=== PATIENT | male | born 1990 | race Caucasian/White ===

== ENCOUNTER 2018-04-21 21:23 | Emergency (ER) | payer BC ==
[~2018-04-21] VITALS: Ht 170.2 cm; Wt 54.4 kg
[2018-04-21] MEDS ORDERED: AMOXICILLIN 50500 MG (21:42)
[2018-04-21] MEDS ORDERED: ZPAK PO (22:22)
[2018-04-21] MEDS ORDERED: NABUMETONE 750750 M1 PO (22:22)
[2018-04-21] MEDS ORDERED: BUTALB-APAP-CA1 EACH PO (22:22)
[2018-04-21 22:34] VITALS: BP 112/67
== END 2018-04-21 22:36 | disposition home or self-care (01) ==
LOC: M.ERS 21:23
DX: J02.9 Acute pharyngitis, unspecified (principal); R59.1 Generalized enlarged lymph nodes; R51 Headache; R07.89 Other chest pain; Z88.8 Allergy status to other drugs, medicaments and biological substances

== ENCOUNTER 2018-04-24 20:19 | Emergency (ER) | payer BC ==
[~2018-04-24] VITALS: Ht 170.2 cm; Wt 54.4 kg
[~2018-04-24 20:19] MED LIST: AMOXICILLIN 50500 MG; BUTALB-APAP-CA1 EACH PO; NABUMETONE 750750 M1 PO; ZPAK PO
[2018-04-24 21:26] LABS: URINE BILIRUBIN NEGATIVE (Negative); URINE BLOOD NEGATIVE (Negative); URINE CLARITY CLEAR; URINE COLOR YELLOW; URINE GLUCOSE-RANDOM NEGATIVE (Negative); URINE KETONES 1+ (Negative); URINE LEUKOCYTES-REFLEX NEGATIVE (Negative); URINE NITRITE-REFLEX NEGATIVE (Negative); URINE PROTEIN TRACE (Negative); URINE UROBILINOGEN 0.2 E.U./dl (0.2-1.0)
[2018-04-24] MEDS ORDERED: MEDROLDOSEPACK PO (21:48)
[2018-04-24] MEDS ORDERED: CLEOCIN HCL300 MG PO (21:48)
[2018-04-24 22:00] VITALS: BP 102/57
== END 2018-04-24 22:01 | disposition home or self-care (01) ==
LOC: M.ERS 20:19
PROVIDERS: Nurse Practitioner Family
DX: J02.9 Acute pharyngitis, unspecified (principal); F17.200 Nicotine dependence, unspecified, uncomplicated; Z88.8 Allergy status to other drugs, medicaments and biological substances

== ENCOUNTER 2020-04-15 10:37 | Emergency (ER) | payer BC ==
[~2020-04-15] VITALS: Ht 170.2 cm; Wt 50.4 kg
[~2020-04-15 10:37] MED LIST changes: +CLEOCIN HCL300 MG PO; +MEDROLDOSEPACK PO
[2020-04-15 11:13] LABS: ABSOLUTE BASOPHILS 0.1 thou/uL (0.0-0.2); ABSOLUTE LYMPHOCYTES 1.7 thou/uL (0.8-5.3); ABSOLUTE MONOCYTES 0.7 thou/uL (0.0-1.2); ABSOLUTE NEUTROPHILS 6.8 thou/uL (1.6-8.1); BASOPHILS 1.4 %; EOSINOPHILS 0.2 %; HEMATOCRIT 43.2 % (42.0-52.0); HEMOGLOBIN 15.4 gm/dL (14.0-18.0); LYMPHOCYTES 18.1 %; MCH 31.7 pg (26.0-34.0); MCHC 35.6 g/dL (28.0-37.0); MCV 89.3 fL (80.0-100.0); MONOCYTES 7.9 %; MPV 7.2 fl. (7.2-11.1); NUCLEATED RBCS 0 /100WBC; PLATELET COUNT* 286 thou/uL (150-400); POLYS 72.4 %; RBC 4.85 mil/uL (4.50-6.00); RDW-CV 12.5 % (10.5-14.5); WBC 9.4 thou/uL (4.0-11.0)
[2020-04-15 11:20] LABS: APTT 28.1 Seconds (25.0-31.3); PROTIME 10.4 Seconds (9.20-11.50)
[2020-04-15 11:23] LABS: CALCIUM 8.9 mg/dL (8.5-10.1); CREATININE 0.9 mg/dL (0.6-1.3); POTASSIUM 3.9 mmol/L (3.5-5.1)
[2020-04-15 11:33] LABS: ALBUMIN 4.2 g/dL (3.4-5.0); TOTAL BILIRUBIN 0.5 mg/dL (<0.1-1.0); TOTAL PROTEIN 7.5 g/dL (6.4-8.2)
[2020-04-15 11:42] LABS: URINE BILIRUBIN NEGATIVE (Negative); URINE BLOOD NEGATIVE (Negative); URINE CLARITY CLEAR; URINE COLOR YELLOW; URINE GLUCOSE-RANDOM NEGATIVE (Negative); URINE KETONES NEGATIVE (Negative); URINE LEUKOCYTES-REFLEX NEGATIVE (Negative); URINE NITRITE-REFLEX NEGATIVE (Negative); URINE PROTEIN NEGATIVE (Negative); URINE SPECIFIC GRAVITY 1.025 (1.005-1.030); URINE UROBILINOGEN 0.2 E.U./dl (0.2-1.0)
[2020-04-15 12:07] LABS: AMP/METHAMP Negative (Negative); BARBITURATES Negative (Negative); BENZODIAZEPINES Negative (Negative); COCAINE Negative (Negative); METHADONE Negative (Negative); OPIATES Negative (Negative); PCP Negative (Negative); THC POSITIVE (Negative)
[2020-04-15 12:29] LABS: ACETAMINOPHEN < 2 ug/mL (10-30); ALCOHOL < 10 mg/dL (<10)
[2020-04-15 12:50] VITALS: BP 115/71
--- NOTE | 2020-04-15 15:43 | EKG ---
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 04/15/20 1543 1057 1057 Dennys Bryant MD, [facility] /EPI
== END 2020-04-15 12:50 | disposition home or self-care (01) ==
LOC: M.ERS 10:37
PROVIDERS: Family Medicine
DX: R53.1 Weakness (principal); Z88.8 Allergy status to other drugs, medicaments and biological substances; Z79.899 Other long term (current) drug therapy

== ENCOUNTER → 2020-04-23 | Outpatient (CLI) | payer BC | LOC: M.MRI 13:26 | PROVIDERS: ATTEND Internal Medicine | DX: R55 Syncope and collapse (principal) ==